=== PATIENT | male | born 1970 | race Caucasian/White ===

== ENCOUNTER 2016-10-18 11:48 | Emergency (ER) | payer SELFPAY ==
[2016-10-18] MEDS ORDERED: Ondansetron ODT 4 MG TAB ONE (12:10)
[2016-10-18] MEDS ORDERED: Sulfameth/Trimethoprim DS 800-160mg TAB ONE (12:47)
[2016-10-18] MEDS ORDERED: Triple Antibiotic Oint 1 GM Packet ONE (12:54)
== END 2016-10-18 12:55 | disposition home or self-care (01) ==
LOC: BURERS 11:48
DX: S60.452A Superficial foreign body of right middle finger, initial encounter (principal); J44.9 Chronic obstructive pulmonary disease, unspecified; F17.210 Nicotine dependence, cigarettes, uncomplicated; W45.8XXA Other foreign body or object entering through skin, initial encounter
CPT/HCPCS: 99283; J2001; Q0162

== ENCOUNTER 2018-05-14 19:42 | Emergency (ER) | payer SELFPAY ==
[2018-05-14] MEDS ORDERED: Albuterol Sulfate 1.25 MG/3 ML NEB ONE (20:13)
[2018-05-14] MEDS ORDERED: Azithromycin 500 MG VIAL ONE (20:25)
[2018-05-14] MEDS ORDERED: Cephalexin 500 MG CAP ONE (20:26)
[2018-05-14] MEDS ORDERED: Azithromycin 250 MG TAB ONE (20:26)
[2018-05-14] MEDS ORDERED: Activase 2 MG VIAL ONE (20:27)
== END 2018-05-14 21:00 | disposition home or self-care (01) ==
LOC: BURERS 19:42
DX: J20.9 Acute bronchitis, unspecified (principal); F17.210 Nicotine dependence, cigarettes, uncomplicated; J44.9 Chronic obstructive pulmonary disease, unspecified
CPT/HCPCS: 94640; J0456; J2997; J7620

== ENCOUNTER 2018-08-02 10:28 | Emergency (ER) | payer SELFPAY ==
[2018-08-02] MEDS ORDERED: AMOXicillin 250 MG CAP ONE (10:50)
== END 2018-08-02 10:55 | disposition home or self-care (01) ==
LOC: BURERS 10:28
DX: H66.92 Otitis media, unspecified, left ear (principal); H93.12 Tinnitus, left ear; J44.9 Chronic obstructive pulmonary disease, unspecified; F17.210 Nicotine dependence, cigarettes, uncomplicated
CPT/HCPCS: 99283

== ENCOUNTER 2019-02-11 09:41 | Emergency (ER) | payer BC, SELFPAY | END 2019-02-11 10:08 | disposition home or self-care (01) | LOC: BURERS 09:41 | DX: L73.9 Follicular disorder, unspecified (principal); J44.9 Chronic obstructive pulmonary disease, unspecified; F17.210 Nicotine dependence, cigarettes, uncomplicated | CPT/HCPCS: 99282 ==

== ENCOUNTER 2019-02-25 16:45 | Emergency (ER) | payer BC ==
[2019-02-25] MEDS ORDERED: Ketorolac Tromethamine 30 MG/ML VIAL ONE (17:07)
[2019-02-25] MEDS ORDERED: Prochlorperazine 10 MG/2 ML VIAL ONE (17:07)
[2019-02-25] MEDS ORDERED: diphenhydrAMINE 25 MG CAP ONE (17:07)
== END 2019-02-25 17:55 | disposition home or self-care (01) ==
LOC: BURERS 16:45
DX: G43.909 Migraine, unspecified, not intractable, without status migrainosus (principal); J44.9 Chronic obstructive pulmonary disease, unspecified; F17.210 Nicotine dependence, cigarettes, uncomplicated
CPT/HCPCS: 96361; 96374; 96375; J0780; J1885; Q0163

== ENCOUNTER 2019-07-12 15:27 | Emergency (ER) | payer BC | END 2019-07-12 15:57 | disposition home or self-care (01) | LOC: BURERS 15:27 | DX: L73.9 Follicular disorder, unspecified (principal); H92.02 Otalgia, left ear; F17.210 Nicotine dependence, cigarettes, uncomplicated; G43.909 Migraine, unspecified, not intractable, without status migrainosus; J44.9 Chronic obstructive pulmonary disease, unspecified | CPT/HCPCS: 99283 ==

== ENCOUNTER 2020-01-19 20:53 | Emergency (ER) | payer BC ==
[2020-01-19] MEDS ORDERED: Lidocaine 2% w/Epinephrine 1:200K 20 ML VIAL ONE (22:24)
--- NOTE | 2020-01-20 06:54 | RAD ---
LEF ELBOW 4 VIEWS: Date: 01/19/2020 No fracture or joint effusion seen. The joint appears normal. There is considerable soft tissue swell ing over the olecranon, so olecranon bursitis is a possibility. IMPRESSION: Soft tissue swelling. POS: HOME
== END 2020-01-19 22:48 | disposition home or self-care (01) ==
LOC: BURERS 20:53
DX: M70.22 Olecranon bursitis, left elbow (principal); J44.9 Chronic obstructive pulmonary disease, unspecified; F17.210 Nicotine dependence, cigarettes, uncomplicated
CPT/HCPCS: 20605

== ENCOUNTER 2020-06-14 18:00 | Emergency (ER) | payer BC ==
--- NOTE | 2020-06-14 21:38 | CT ---
CT CERVICAL SPINE 06/14/20 There is loss of the normal cervical lordosis which could be due to muscle spasm. No fracture, disloc ation, or soft tissue swelling was seen. There may be some minor disc space narrowing at C5-C6. No ob vious disc herniations were seen, but small protrusions would be missed on this study. MRI would be n eeded for greater sensitivity. There is no severe central canal stenosis or foraminal stenosis. The m ost one could say is at C5-C6 on the right side there may be some minimal foraminal narrowing. The C1 to dens distance is normal. Incidental findings are some scarring in the lung apices and what is mos t likely a bleb in the apex of the right lung. IMPRESSION: Other than loss of lordosis, no acute bony findings. Consider MRI for further follow-up if symptoms c ontinsalo. Preliminary report called to Dr. Abebe at [id number] on 06/14/20. POS: HOME
== END 2020-06-14 19:08 | disposition home or self-care (01) ==
LOC: BURERS 18:00
DX: M54.12 Radiculopathy, cervical region (principal); J44.9 Chronic obstructive pulmonary disease, unspecified; F17.210 Nicotine dependence, cigarettes, uncomplicated
CPT/HCPCS: 72125

== ENCOUNTER 2020-10-23 16:33 | Emergency (ER) | payer BC, SELFPAY ==
[2020-10-23] MEDS ORDERED: Ketorolac Tromethamine 30 MG/ML VIAL ONE (17:15)
== END 2020-10-23 18:15 | disposition home or self-care (01) ==
LOC: BURERS 16:33
DX: M54.12 Radiculopathy, cervical region (principal); J44.9 Chronic obstructive pulmonary disease, unspecified; F17.210 Nicotine dependence, cigarettes, uncomplicated
CPT/HCPCS: 72050; 96372; J1885

== ENCOUNTER 2021-07-17 15:59 | Emergency (ER) | payer BC, SELFPAY ==
[2021-07-17] MEDS ORDERED: predniSONE 20 MG TAB ONE (17:26)
[2021-07-17 17:31] LABS: #Basophils 0.1 thou/uL (0.0-0.2); #Eosinphils 0.2 thou/uL (0.0-0.7); #Lymphocytes 3.9 thou/uL (1.20-3.40); #Monocytes 0.7 thou/uL (0.11-0.59); #Neutrophils 6.4 thou/uL (1.40-6.50); %Basophils 0.6 % (0.0-1.0); %Eosinophils 1.8 % (0.0-10.0); %Lymphocytes 34.9 % (21.0-51.0); %Monocytes 6.4 % (0.0-10.0); %Neutrophils 56.4 % (42.0-75.0); Hemoglobin 15.2 g/dL (14.0-18.0); Mean Corpuscular HGB CONC 33.4 g/dL (32.0-36.0); Mean Corpuscular Hemoglobin 31.1 pg (27.0-31.0); Mean Corpuscular Volume 93.1 fL (78.0-98.0); Mean Platelet Volume 6.2 fL (7.4-10.4); Platelet Count 387 thou/uL (130-400); RBC Distribution Width 12.4 % (11.5-14.5); Red Blood Cell (RBC) Count 4.87 mill/uL (4.70-6.10); White Blood Cell (WBC) Count 11.3 thou/uL (4.8-10.8)
[2021-07-17 17:47] LABS: ALT (SGPT) 41 U/L (8-55); AST (SGOT) 26 U/L (5-34); Albumin 4.4 g/dL (3.5-5.0); Alkaline Phosphatase 88 U/L (40-110); Anion Gap 15 mmol/L (10-20); BUN (Urea Nitrogen) 11 mg/dL (8.9-20.6); Bilirubin, Total 0.3 mg/dL (0.2-1.2); Calc. Creatinine Clearance 0 mL/min (70-130); Calcium 9.5 mg/dL (7.8-10.44); Carbon Dioxide 26 mmol/L (22-29); Chloride 103 mmol/L (98-107); Globulin 2.8 g/dL (2.4-3.5); Glucose 86 mg/dL (70-105); Potassium 4.4 mmol/L (3.5-5.1); Protein, Total 7.2 g/dL (6.0-8.3); Sodium 140 mmol/L (136-145)
== END 2021-07-17 18:53 | disposition home or self-care (01) ==
LOC: BURERS 15:59
DX: J06.9 Acute upper respiratory infection, unspecified (principal); J44.9 Chronic obstructive pulmonary disease, unspecified; F17.210 Nicotine dependence, cigarettes, uncomplicated
CPT/HCPCS: 36415; 71045; 80053; 83880; 84484; 85025; 93005; J7512; J7620